=== PATIENT | female | born 1960 | race Caucasian/White ===

== ENCOUNTER 2019-02-24 00:38 | Observation (INO) ==
[2019-02-24] MEDS ORDERED: ASPIRIN 325 MG TABLET PO STA (01:46)
[2019-02-24] MEDS ORDERED: ONDANSETRON 4 MG/2 ML VIAL IV STA (01:46)
[2019-02-24 01:56] LABS: Eosinophils # 0.1 10*3/uL (0.0-0.87); Eosinophils % 2.4 % (0.00-10.9); Hematocrit 34.3 VOL% (35.7-47.0); Hemoglobin 10.9 GM/DL (12.0-16.0); Immature Granulocytes % 0.7 %; Immature Granulocytes Absolute 0.03 #; Lymphocytes # 1.3 10*3/uL (1.4-4.0); Lymphocytes % 30.5 % (21.3-54.2); Mean Corpuscular HGB Conc 31.8 GM/DL (32-36); Mean Platelet Volume 12.4 FL (9.6-12.0); Monocytes % 7.4 % (1.7-12.7); Platelet Count 181 T/CUMM (130-400); Red Blood Count 3.99 MC/CUMM (3.8-5.5); Red Cell Distribution Width 13.7 % (9.3-17.3); White Blood Count 4.2 T/CUMM (4-12)
[2019-02-24 02:06] LABS: INR 3.3
[2019-02-24 02:09] LABS: PT Patient Result 35.1 SECS
[2019-02-24 03:36] LABS: Apearance,Urine CLEAR (Clear); Bilirubin,Urine Negative (Negative); Blood, Urine Negative (Negative); Glucose,Urine (UA) >=500 mg/dL (Negative); Hyaline Casts,Urine 1 /LPF (0-3); Ketones,Urine Negative (Negative); Mucus,Urine Occasional /LPF (Occasional); Nitrite,Urine Negative (Negative); Protein,Urine Negative; RBC,Urine <1 /HPF (0-4); Squamous Epithelial Cell,Urine Occasional /HPF (0-10); Urine Color Yellow (Yellow); Urine Specific Gravity 1.013 (1.001-1.035); Urine Urobilinogen < 2.0 EU/DL (0.2-1.0); WBC,Urine 2 /HPF (0-6)
[2019-02-24 03:36] LABS: Alanine Aminotransferase 83 U/L (13-56); Albumin 3.5 G/DL (3.4-5.0); Alkaline Phosphatase 140 U/L (45-117); Aspartate Amino Transferase 88 U/L (0-37); Bilirubin,Total < 0.39 MG/DL (0.2-1.0); Blood Urea Nitrogen 15 MG/DL (7-18); Calcium 9.1 MG/DL (8.5-10.1); Glucose 323 MG/DL (74-106); Osmolality,Calculated 278.4 MOS/KG (273-304); Total Protein 7.5 G/DL (6.4-8.3); Troponin I < 0.015 NG/ML (0.00-0.045)
[2019-02-24 03:41] LABS: Barbiturates Screen,Urine Negative (Negative); Benzodiazepines Screen,Urine Positive (Negative); Cannabinoid Screen,Urine Negative (Negative); Opiate Screen,Urine Positive (Negative); Phencyclidine Screen,Urine Negative (Negative)
[2019-02-24] MEDS ORDERED: MAGNESIUM SULF RIDER 2 GM in PREMIX 1 EACH IV STA (04:27)
[2019-02-24] MEDS ORDERED: ACETAMINOPHEN 325 MG TABLET PO PRN (05:13)
[2019-02-24] MEDS ORDERED: MORPHINE 4 MG/1 ML VIAL IV PRN (05:13)
[2019-02-24] MEDS ORDERED: GLUCAGON 1 MG VIAL IM PRN (05:13)
[2019-02-24] MEDS ORDERED: DEXTROSE 50% 25 GM/50 ML VIAL IV PRN (05:13)
[2019-02-24] MEDS ORDERED: DOCUSATE SODIUM 100 MG CAPSULE PO PRN (05:13)
[2019-02-24] MEDS ORDERED: NITROGLYCERIN SL 0.4 MG TABLET SL PRN (05:25)
[2019-02-24] MEDS ORDERED: ENOXAPARIN 40 MG/0.4 ML SYRINGE SUBCUT SCH (05:30)
[2019-02-24] MEDS ORDERED: ALPRAZolam 0.5 MG TABLET PO PRN (06:03)
[2019-02-24] MEDS ORDERED: ACETAMINOPHEN 325 MG TABLET PO ONE (06:28)
[2019-02-24 07:16] LABS: Risk Ratio 9.15; Thyroid Stimulating Hormone 2.88 uIU/ml (0.358-3.74)
[2019-02-24] MEDS ORDERED: GLIMEPIRIDE 2 MG TABLET PO SCH (08:00)
[2019-02-24] MEDS ORDERED: FENOFIBRATE 160 MG TABLET PO SCH (09:00)
[2019-02-24] MEDS ORDERED: ALPRAZolam 0.5 MG TABLET PO SCH (09:00)
[2019-02-24] MEDS: INSULIN LISPRO 100 UNIT/ML SUBCUT SCH ×4 (09:48→20:20)
[2019-02-24] MEDS: FUROSEMIDE 40 MG TABLET PO SCH ×2 (10:24→14:59)
[2019-02-24] MEDS: PANTOPRAZOLE 40 MG TABLET PO SCH ×2 (10:24→14:59)
[2019-02-24] MEDS: CETIRIZINE 10 MG TABLET PO SCH ×2 (10:24→14:58)
[2019-02-24] MEDS: ASPIRIN EC 81 MG TABLET PO SCH ×2 (10:24→14:59)
[2019-02-24] MEDS: METOPROLOL SUCCINATE XL 50 MG TABLET PO SCH ×2 (10:24→14:59)
[2019-02-24] MEDS: LISINOPRIL 5 MG TABLET PO SCH ×2 (10:24→14:58)
[2019-02-24] MEDS: POTASSIUM CHLORIDE 20 MEQ TABLET PO SCH ×2 (10:24→14:59)
[2019-02-24] MEDS ORDERED: INSULIN DETEMIR SUBCUT SCH (13:15)
[2019-02-24] MEDS ORDERED: REGADENOSON 0.4 MG/5 ML SYRINGE IV ONE (13:58)
[2019-02-24] MEDS: cephALEXin 500 MG CAPSULE PO SCH ×2 (14:59→21:42)
[2019-02-24] MEDS: GABAPENTIN 300 MG CAPSULE PO SCH ×2 (14:59→21:42)
[2019-02-24] MEDS: DICYCLOMINE 20 MG TABLET PO SCH (16:41)
[2019-02-24] MEDS ORDERED: metFORMIN 500 MG TABLET PO SCH (17:00)
[2019-02-24] MEDS ORDERED: WARFARIN 2 MG TABLET PO SCH (18:00)
[2019-02-24] MEDS: ONDANSETRON 4 MG/2 ML VIAL IV PRN (20:18)
[2019-02-24] MEDS ORDERED: ROSUVASTATIN 20 MG TABLET PO SCH (21:00)
[2019-02-24] MEDS: FLUTICASONE 50 MCG NASAL SPRAY 16 GM BOTTLE BOTH NARES SCH (21:43)
[2019-02-25] MEDS: BACLOFEN 10 MG TABLET PO SCH ×3 (00:35→14:14)
[2019-02-25] MEDS: ONDANSETRON 4 MG/2 ML VIAL IV PRN (01:48)
[2019-02-25] MEDS: cephALEXin 500 MG CAPSULE PO SCH ×2 (06:03→14:14)
[2019-02-25 06:25] LABS: Basophils % 0.5 % (0.0-0.8); Eosinophils # 0.1 10*3/uL (0.0-0.87); Eosinophils % 2.7 % (0.00-10.9); Hematocrit 34.1 VOL% (35.7-47.0); Hemoglobin 10.7 GM/DL (12.0-16.0); Immature Granulocytes % 0.3 %; Immature Granulocytes Absolute 0.01 #; Lymphocytes # 1.1 10*3/uL (1.4-4.0); Lymphocytes % 30.1 % (21.3-54.2); Mean Corpuscular HGB Conc 31.4 GM/DL (32-36); Mean Corpuscular Volume 85.3 FL (87-102); Mean Platelet Volume 12.5 FL (9.6-12.0); Monocytes % 7.9 % (1.7-12.7); Neutrophils % 58.5 % (38.7-73.9); Platelet Count 195 T/CUMM (130-400); Red Cell Distribution Width 13.3 % (9.3-17.3); White Blood Count 3.7 T/CUMM (4-12)
[2019-02-25 06:30] LABS: INR 1.7; PT Patient Result 18.8 SECS
[2019-02-25 06:51] LABS: Calcium 9.4 MG/DL (8.5-10.1); Osmolality,Calculated 281.2 MOS/KG (273-304)
[2019-02-25] MEDS: INSULIN LISPRO 100 UNIT/ML SUBCUT SCH ×2 (08:55→12:23)
[2019-02-25] MEDS: DICYCLOMINE 20 MG TABLET PO SCH ×2 (08:56→12:23)
[2019-02-25] MEDS: CETIRIZINE 10 MG TABLET PO SCH (08:56)
[2019-02-25] MEDS: POTASSIUM CHLORIDE 20 MEQ TABLET PO SCH (08:56)
[2019-02-25] MEDS: FUROSEMIDE 40 MG TABLET PO SCH (08:56)
[2019-02-25] MEDS: PANTOPRAZOLE 40 MG TABLET PO SCH (08:56)
[2019-02-25] MEDS: ASPIRIN EC 81 MG TABLET PO SCH (08:56)
[2019-02-25] MEDS: GABAPENTIN 300 MG CAPSULE PO SCH ×2 (08:56→14:14)
[2019-02-25] MEDS: LISINOPRIL 5 MG TABLET PO SCH (08:57)
[2019-02-25] MEDS: FLUTICASONE 50 MCG NASAL SPRAY 16 GM BOTTLE BOTH NARES SCH (08:57)
[2019-02-25] MEDS: METOPROLOL SUCCINATE XL 50 MG TABLET PO SCH (08:57)
[2019-02-25] MEDS ORDERED: INSULIN GLARGINE 100 UNIT/ML SUBCUT SCH ×2 (09:00)
[2019-02-25] MEDS ORDERED: PROMETHAZINE 25 MG TABLET PO PRN (11:00)
[2019-02-25] MEDS ORDERED: METOCLOPRAMIDE 10 MG/10 ML UDCUP PO SCH (11:30)
[2019-02-25 12:10] VITALS: BP 116/62
[2019-02-25] MEDS ORDERED: WARFARIN 2.5 MG TABLET PO SCH (18:00)
== END 2019-02-25 14:20 | disposition home or self-care (01) ==
LOC: EDUNIT# → EDBD → N.ED 00:38 → N.EDINP 00:38 → SUATTDRO 05:13 → N.TELES 06:35
PROVIDERS: ADMIT Internal Medicine; ATTEND Family Medicine